=== PATIENT | female | born 2000 | race Caucasian/White ===

== ENCOUNTER 2021-02-24 11:48 | Outpatient (CLI) | payer BC | END 2021-02-24 11:49 | disposition home or self-care (01) | LOC: CSHULT 11:48 | PROVIDERS: ATTEND Urology | DX: N20.0 Calculus of kidney (principal) | CPT/HCPCS: 76770 ==

== ENCOUNTER 2021-04-12 10:56 | Emergency (ER) | payer BC, MEDICAID ==
[2021-04-12 18:15] LABS: SARS-CoV-2 PCR by NAA Not Detected (NotDetected)
== END 2021-04-12 12:10 | disposition home or self-care (01) ==
LOC: CSHERS 10:56
DX: B34.9 Viral infection, unspecified (principal); E78.5 Hyperlipidemia, unspecified; E78.00 Pure hypercholesterolemia, unspecified; E66.9 Obesity, unspecified; Z87.891 Personal history of nicotine dependence; Z20.822 Contact with and (suspected) exposure to COVID-19
CPT/HCPCS: 99283; U0003; U0005

== ENCOUNTER 2021-08-22 19:46 | Emergency (ER) | payer BC, OTHER ==
[2021-08-22 21:21] LABS: Bilirubin Neg (Negative); Blood, Urine Negative (Negative); Clarity Slightly Cloudy (Clear); Glucose, Urine (Dipstick) Normal (Negative); Ketone, Urine Negative (Negative); Leukocyte 25 (Negative); Nitrite Negative (Negative); Protein, Urine (Dipstick) 15 mg/dl (Neg-Trace); Urobilinogen Normal mg/dL (Less than 2)
[2021-08-22 21:23] LABS: Pregnancy Test - Urine (BHCG) Negative (Negative); Pregu Control Background? CLEAR/WHITE (CLR/WHITE); Pregu Control Bar Appear? YES (CONTROL BAR)
[2021-08-22 21:26] LABS: RBC/HPF 0-3 HPF (0-3)
[2021-08-22 21:27] LABS: Bacteria/HPF Rare-Few HPF (None Seen)
== END 2021-08-22 22:19 | disposition home or self-care (01) ==
LOC: CSHERS 19:46
DX: R30.0 Dysuria (principal); R35.0 Frequency of micturition; E78.5 Hyperlipidemia, unspecified; E78.00 Pure hypercholesterolemia, unspecified; E66.9 Obesity, unspecified; Z87.891 Personal history of nicotine dependence
CPT/HCPCS: 81003; 81015; 81025; 87086; 99283

== ENCOUNTER 2021-09-26 14:12 | Outpatient (CLI) | payer BC, OTHER | END 2021-09-26 14:13 | disposition home or self-care (01) | LOC: CSHCT 14:12 | PROVIDERS: ATTEND Urology | DX: N20.0 Calculus of kidney (principal) | CPT/HCPCS: 74176 ==

== ENCOUNTER 2022-08-10 19:13 | Emergency (ER) | payer BC, OTHER | END 2022-08-10 19:59 | disposition home or self-care (01) | LOC: CSHERS 19:13 | DX: B37.2 Candidiasis of skin and nail (principal); E78.00 Pure hypercholesterolemia, unspecified; E66.9 Obesity, unspecified; Z87.891 Personal history of nicotine dependence | CPT/HCPCS: 99283 ==